=== PATIENT | female | born 1945 | race Caucasian/White ===

== ENCOUNTER → 2017-02-03 | Outpatient (CLI) | payer BC ==
--- NOTE | 2017-02-03 08:48 | MR ---
EXAMINATION TYPE: MR shoulder LT wo con DATE OF EXAM: 02/03/2017 7:32 AM COMPARISON: Outside left shoulder x-ray January 21, 2017. HISTORY: Left shoulder pain per order. Pain with motion with difficulty raising overhead for one year per patient. TECHNIQUE: Multiplanar, multisequence imaging of the left shoulder is performed without contrast. FINDINGS: Rotator Cuff: There is increased signal in distal supraspinatus tendon. There is focal articular surf jina partial tear measuring 4 mm transversely on paracoronal image 1 3 mm in anterior posterior dimens ion on parasagittal image 5. No full-thickness retracted tendon tear is identified. Infraspinatus ten don is intact. Subscapularis tendon is intact with increased signal distally noted. Rotator cuff musc le bulk is maintained. Acromioclavicular Joint: There is moderate spurring and joint space loss, inferior fat plane is lost, underlying impingement is suspected. Type II downsloping acromion is noted. Glenohumeral Joint: There is moderate to large glenohumeral joint effusion. There is joint space loss with mild to minimal spurring. Labrum: Intermediate signal and deformity consistent with labral tear is present. Biceps Tendon: There appears to be vertical cleavage tear through the extra-articular portion of the long head of biceps tendon. Intra-articular portion not well seen but increased signal is definitely present. Bone marrow signal: There is subchondral cystic change in the superolateral humeral head. Other: There is well-defined 1.6 cm ossific fragment perhaps product of old trauma or fractured osteo phyte adjacent to the bicipital groove seen best on paracoronal image 13. IMPRESSION: 1. Tendinosis and partial articular surface tear of supraspinatus tendon. 2. Fraying tear superior labrum. 3. Moderate to advanced osteoarthritic changes in the shoulder as detailed above. Underlying impingem ent suspected. 4. High-grade tear and tendinosis of long head of biceps tendon.
== END ==
LOC: RADMRIMAIN 06:34
PROVIDERS: ATTEND Orthopaedic Surgery
DX: M75.102 Unspecified rotator cuff tear or rupture of left shoulder, not specified as traumatic (principal); S43.402A Unspecified sprain of left shoulder joint, initial encounter; X58.XXXA Exposure to other specified factors, initial encounter; M19.012 Primary osteoarthritis, left shoulder; S46.112A Strain of muscle, fascia and tendon of long head of biceps, left arm, initial encounter

== ENCOUNTER → 2017-03-06 | Outpatient (CLI) | payer BC ==
[2017-03-06 13:48] LABS: Basophils # (A) 0.1 k/uL (0-0.2); Basophils % (A) 1 %; CH 30.6; CHCM 32.5; Eosinophils # (A) 0.1 k/uL (0-0.7); Eosinophils % (A) 1 %; HCT 48.5 % (34.0-46.0); HDW 2.41; HGB 15.6 gm/dL (11.4-16.0); Luc # (Auto) 0.22; Luc % (Auto) 2; Lymphocytes # (A) 3.4 k/uL (1.0-4.8); Lymphocytes % (A) 29 %; MCH 30.5 pg (25.0-35.0); MCHC 32.2 g/dL (31.0-37.0); MCV 94.8 fL (80.0-100.0); Monocytes # (A) 0.7 k/uL (0-1.0); Monocytes % (A) 6 %; Neutrophils # (A) 7.1 k/uL (1.3-7.7); Neutrophils % (A) 61 %; RBC 5.12 m/uL (3.80-5.40); RDW 13.5 % (11.5-15.5); WBC 11.6 k/uL (3.8-10.6); WBC (Perox) 11.64
[2017-03-06 14:04] LABS: Potassium 4.1 mmol/L (3.5-5.1)
== END | disposition home or self-care (01) ==
LOC: LABPAT 13:25
PROVIDERS: ATTEND Orthopaedic Surgery
DX: Z01.810 Encounter for preprocedural cardiovascular examination (principal); I10 Essential (primary) hypertension; M75.42 Impingement syndrome of left shoulder
CPT/HCPCS: 80051; 85025

== ENCOUNTER 2017-03-19 06:44 | Day surgery (SDC) | payer BC ==
[2017-03-17 11:38] VITALS: BMI 28.3
--- NOTE | 2017-03-18 15:29 | HP ---
DATE OF ADMISSION: 03/19/2017 Nikole Almaguer is a 72-year-old patient seen with progressive left shoulder pain. After having treatment options discussed, she elected to proceed with left shoulder arthroscopy. Consent was obtained. Her past medical history is hypertension, cardiovascular disease, asthma. PAST SURGICAL HISTORY: Cardiac catheterization, carpal tunnel surgery, section, herniorrhaphy, hysterectomy, knee arthroscopy, splenectomy, right shoulder arthroscopy. DAILY MEDICATIONS: 1. Lisinopril/hydrochlorothiazide. 2. Singulair. 3. Metformin. 4. Aleve. ALLERGIES: SULFA, TRIMOX, AUGMENTIN, LORTAB, CODEINE, CIPRO, IBUPROFEN, ROCEPHIN, CRESTOR. SOCIAL HISTORY: Patient denies tobacco use. Physical evaluation of the left shoulder: Flexion 100 degrees, abduction is 90 degrees, external rotation is 20 degrees with weakness. Tenderness along the anterolateral acromion and rotator cuff insertion. Impingement is positive at 90 degrees, distal neurovascular exam is intact. Radiographs of the left shoulder revealed a type 2 anterior acromion, evidence for acromioclavicular joint osteoarthritis and cystic changes of the tuberosity. An MRI of the left shoulder revealed impingement, osteoarthritis, as well as a partial rotator cuff tendon tear. IMPRESSION: Left shoulder impingement with partial rotator cuff tear. PLAN: Left shoulder arthroscopy with subacromial decompression, possible arthroscopic rotator cuff repair, and debridement.
[~2017-03-19 06:44] MED LIST: DEXAMETHASONE SOD PHOSPHATE 10 MG/ML 1 ML VIAL IV ONE; HYDROmorphone 1 MG/ML 1 ML SYRINGE IVP PRN; LACTATED RINGERS 1,000 ML IV SCH; LIDOCAINE 1% 20 ML VIAL (10MG/ML) FOR IV START INTRADERMA PRN; MIDAZOLAM 2 MG/2 ML VIAL IV PRN; ONDANSETRON 4 MG/2 ML VIAL IVP ONE; SCOPOLAMINE 1.5MG/72HR PATCH TRANSDERM ONE; ceFAZolin 1,000 MG in DEXTROSE/WATER 1 50ML.BAG IV ONE
[2017-03-19 07:38] LABS: Glucose,Whole Blood 120 mg/dL (75-99)
[2017-03-19] MEDS ORDERED: LIDOCAINE 2%-EPI 1:100,000 20 ML VIAL ONE (08:25)
[2017-03-19] MEDS ORDERED: PROPOFOL 10 MG/ML 20 ML VIAL IV ONE (08:25)
[2017-03-19] MEDS ORDERED: SUCCINYLCHOLINE CHLORIDE 100 MG/5 ML SYR IV ONE (08:25)
[2017-03-19] MEDS ORDERED: MIDAZOLAM 2 MG/2 ML VIAL ONE (08:25)
[2017-03-19] MEDS ORDERED: ROCURONIUM BROMIDE 10 MG/ML 10 ML VIAL IV ONE (08:25)
[2017-03-19] MEDS ORDERED: fentaNYL (PF) 50 MCG/ML 2 ML AMP ONE (08:25)
[2017-03-19] MEDS ORDERED: ePHEDrine 50 MG/ML 1 ML AMP ONE (08:25)
[2017-03-19] MEDS ORDERED: ROPIVACAINE 5 MG/ML 30 ML VIAL ONE (08:25)
[2017-03-19] MEDS ORDERED: LACTATED RINGERS 1,000 ML IV ONE (09:33)
[2017-03-19 10:05] VITALS: TEMP 97.2
--- NOTE | 2017-03-19 10:09 | P.OP ---
Date of Procedure: 03/19/17 Preoperative Diagnosis: Left shoulder impingement Postoperative Diagnosis: 1. Left shoulder rotator cuff tear 2. Left shoulder subacromial impingement 3. Left shoulder acromioclavicular joint osteoarthritis 4. Left shoulder partial long head biceps tendon tear 5. Left shoulder superficial anterior/superior labral tear 6. 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 Left shoulder arthroscopic rotator cuff repair 2. Left shoulder arthroscopic subacromial decompression 3. Left shoulder arthroscopic Debbi procedure 4. Left shoulder arthroscopic biceps tenotomy 5. Left shoulder arthroscopic debridement superficial anterior/superior labral tears 6. Left shoulder arthroscopic chondroplasty humeral head Implants: 1-valeris 5.5 peek anchor Anesthesia: JOSE, regional (Shoulder block) Surgeon: Paul Aranda Armature Bander #1: Richard Thompson Estimated Blood Loss (ml): 10 Pathology: none sent Condition: stable Disposition: PACU Indications for Procedure: 72-year-old patient seen with progressive left shoulder pain. After having treatment options discussed, she elected to proceed with left shoulder arthroscopy. Operative Findings: See description of procedure Description of Procedure: Patient underwent a shoulder block by department of anesthesia. The patient was then taken to the operative suite. The patient underwent a general anesthetic by the department of anesthesia. The patient was placed into a lateral position and secured. There was appropriate padding of the bony prominence. Left shoulder was then prepped and draped in normal sterile orthopedic fashion. We placed the extremity in 10 pounds of longitudinal traction. A posterior incision was now made for a posterior working portal site. The trocar and cannula were inserted into the glenohumeral joint. Arthroscopy was initiated. Spinal needle was now inserted anteriorly, to ascertain the anterior working portal site. An incision was now made in that area, a trocar was inserted followed by a probe. There was superficial tearing of the anterior and superior labrum. Partial tearing long head biceps tendon was present. There were grade 2-3 chondromalacia changes of the superior portion of the humeral head with some osteochondral tears present. There were grade 1 chondromalacia changes of the glenoid fossa with no osteochondral tears. The posterior and inferior labrum were intact. There were no loose bodies. I performed a arthroscopic biceps tenotomy. I debrided the labral tears down to stable tissue. I performed a chondroplasty of the humeral head down to stable tissue. The residual labrum was stable as was the residual osteochondral surface of the humeral head. At this point instruments removed from glenohumeral joint. Utilizing the posterior working portal site, the trocar and cannula were inserted into the subacromial space. Arthroscopy initiated. I made an incision 2 fingerbreadths lateral to the acromion. I introduced my trocar followed by my ArthroCare ablator. I now began ablating thick subacromial bursal tissue, which exposed the undersurface of the anterior acromion. This was diminished subacromial space. There was a very prominent anterior acromion. A motorized bur was introduced and a subacromial decompression was performed. I also excised some osteophytes off the inferior aspect of the distal clavicle. The AC joint was visualized and noted to be fairly arthritic. Our motorized bur was introduced in the anterior portal site and a Debbi procedure was performed without difficulty, decompressing the AC joint nicely. I turned my attention to the rotator cuff. There was a 1-1.5 cm tear along the distal supraspinatus. I debrided the area/tissue down to stable tissue. I abraded the footprint with a motorized bur. I passed 2 everted mattress sutures through good bites of rotator cuff tendon. I repaired the tendon back to the footprint with 1 anchor compressing the tendon very nicely. The residual suture limbs were clipped. The repair was probed and found to be stable. I injected 1 mL of Allogen at into the footprint/repair site. Instruments now removed from the portal sites. All portal sites were approximated with nylon suture. Sterile dressings were applied followed by a shoulder immobilizer. Syed ALBA assisted with the procedure. The patient was awakened, transferred to a bed, and taken to recovery in stable condition.
[2017-03-19 10:50] LABS: Glucose,Whole Blood 142 mg/dL (75-99)
[2017-03-19 11:05] VITALS: RESP 16
[2017-03-19 11:46] VITALS: BP 137/74; PULSE 82
== END 2017-03-19 12:16 | disposition home or self-care (01) ==
LOC: OR 06:44
PROVIDERS: ATTEND Orthopaedic Surgery
DX: M75.102 Unspecified rotator cuff tear or rupture of left shoulder, not specified as traumatic (principal); M75.42 Impingement syndrome of left shoulder; M19.012 Primary osteoarthritis, left shoulder; S46.112A Strain of muscle, fascia and tendon of long head of biceps, left arm, initial encounter; S43.432A Superior glenoid labrum lesion of left shoulder, initial encounter; M94.212 Chondromalacia, left shoulder; X58.XXXA Exposure to other specified factors, initial encounter; Z88.5 Allergy status to narcotic agent; Z88.2 Allergy status to sulfonamides; Z88.6 Allergy status to analgesic agent; Z88.1 Allergy status to other antibiotic agents; Z88.8 Allergy status to other drugs, medicaments and biological substances; Z79.899 Other long term (current) drug therapy; Z79.84 Long term (current) use of oral hypoglycemic drugs; Z79.1 Long term (current) use of non-steroidal anti-inflammatories (NSAID)
CPT/HCPCS: 64415; 29827; 29826; 29824; C1713; C1765; J2250; J1100; J2405; J3010; J2795; J0330; J2704

== ENCOUNTER → 2017-10-22 | Outpatient (CLI) | payer BC ==
--- NOTE | 2017-10-27 08:31 | MM ---
Reason for exam: screening (asymptomatic). Last mammogram was performed 1 year and 3 months ago. History: Patient is postmenopausal. Took estrogen for 20 years beginning at age 34. Physical Findings: A clinical breast exam by your physician is recommended on an annual basis and results should be correlated with mammographic findings. MG Screening Mammo w CAD Bilateral CC and MLO view(s) were taken. Prior study comparison: July 15, 2016, bilateral MG screening mammo w CAD. January 14, 2011, bilateral digital screening mammo w/CAD. There are scattered fibroglandular densities. Nodular asymmetries anterior right breast just above the retroaerolar plane were present previously but appear more defined on the MLO view. As the appearence is unchanged on the CC view, altered orientation of normal tissue is suggested. 6 month follow up is recommended. ASSESSMENT: Probably benign, BI-RAD 3 RECOMMENDATION: Follow-up diagnostic mammogram of the right breast in 6 months.
== END | disposition home or self-care (01) ==
LOC: RADMAMWWP 14:40
PROVIDERS: ATTEND Family Medicine
DX: Z12.31 Encounter for screening mammogram for malignant neoplasm of breast (principal)

== ENCOUNTER → 2020-01-18 | Outpatient (CLI) | payer BC ==
--- NOTE | 2020-01-18 11:44 | FL ---
EXAMINATION TYPE: FL barium swallow w video DATE OF EXAM: 01/18/2020 COMPARISON: NONE HISTORY: Dysphagia. The patient was evaluated in the lateral projection during real-time fluoroscopy, during ingestion of barium mixed with solids and liquids. No aspiration or laryngeal penetration. See report from [facility]. Some vallecular residuals noted. 1 minute 51 seconds fluoroscopy time, no images obtained
== END | disposition home or self-care (01) ==
LOC: RADFLMAIN 10:38
PROVIDERS: ATTEND Family Medicine
DX: R13.10 Dysphagia, unspecified (principal)
CPT/HCPCS: 74230

== ENCOUNTER → 2021-01-18 | Outpatient (CLI) | payer BC ==
--- NOTE | 2021-01-18 12:14 | NM ---
EXAMINATION TYPE: NM stress cardiolite complete DATE OF EXAM: 01/18/2021 COMPARISON: NONE HISTORY: Chest pain TECHNIQUE: After the intravenous administration of 9.43 mCi Tc 99m Sestamibi - Rest images obtained 50 minutes post injection. The patient exercised using a LUIS ALBERTO protocol and 1 minute prior to peak exercise was injected with 25.3 mCi Tc 99m Sestamibi - Stress images obtained 25 minutes post injecti on. FINDINGS: Targeted heart rate was achieved during performance of the study. Review of stress and rest SPECT luis ges demonstrates no distinct perfusion abnormality. Gated analysis shows normal wall motion with an estimated left ventricular ejection fraction of 75 %. IMPRESSION: No scintigraphic evidence for reversible ischemia
--- NOTE | 2021-01-18 14:02 | EST ---
EXERCISE STRESS AGE: 75 SEX: Female HT: 4'10" WT: 132 lbs. PROTOCOL: Cardiolite Stress STAGE: 2 DURATION OF EXERCISE: 3 minutes 44 seconds HEART RATE REST: 56 BLOOD PRESSURE REST: 162/90 MAXIMUM HEART RATE ACHIEVED: 139 MAXIMUM BLOOD PRESSURE: 236/110 85% MPHR: 122 100% MPHR: 144 METS: 5.4 INDICATIONS: Chest pain CLINICAL INFORMATION: Nikole Almaguer is 75-year-old female. She has a history of chest discomfort. She has diabetes, hypertension. Baseline heart rate 56 beats per minute. Baseline blood pressure 162/90 mmHg. Baseline 12-lead EKG showed sinus rhythm with T-wave inversions in V3 to V6. Patient exercised on a Khris protocol for barely 3 minutes 44 seconds achieving a peak heart rate of 139 beats per minute, hypertensive response. Blood pressure was 236/110 mmHg immediately in recovery. There were no new ECG abnormalities noted. No arrhythmias noted. IMPRESSION: 1. Poor exercise capacity. 2. Hypertensive response. 3. Abnormal ECG at baseline but without development of any new abnormalities. 4. Poor exercise capacity done in Khris protocol. MMODL / IJN: [id number] /
== END | disposition home or self-care (01) ==
LOC: RADNMMAIN 07:47
PROVIDERS: ATTEND Family Medicine
DX: R07.89 Other chest pain (principal)
CPT/HCPCS: 93017; 78452; A9500

== ENCOUNTER → 2021-01-19 | Outpatient (CLI) | payer BC ==
--- NOTE | 2021-01-20 12:55 | MR ---
EXAMINATION TYPE: MR brain wo/w con DATE OF EXAM: 01/19/2021 COMPARISON: NONE HISTORY: Dysphagia, HX benign neoplasm brain, facial paresthesia. TECHNIQUE: Multiplanar, multisequence images of the brain and brainstem is performed without and with IV contras t, utilizing 6 mL intravenous Gadavist . FINDINGS: Diffusion weighted images demonstrate no evidence of a recent infarct or other diffusion ab normality. Surgical change from high right parietal craniotomy with adjacent resection cavity and/or encephalomalacia is present. Ventricles and sulci within normal limits in size for patient's age. Mauricio e scattered foci of T2 hyperintensity seen throughout the white matter bilaterally. Roughly 10-20 sma ll scattered lesions are seen. Midline structures demonstrate normal morphology. The craniocervical junction appears within normal limits. Post contrast images demonstrate no abnormal enhancement. The dural venous sinuses appear p atent. The visualized sinuses are clear. Slight elongation of the globes. IMPRESSION: High right parietal surgical change with focal resection cavity and/or encephalomalacia. Mild chronic small vessel ischemic change. No suspicious enhancement.
== END | disposition home or self-care (01) ==
LOC: RADMRIMAIN 15:15
PROVIDERS: ATTEND Family Medicine
DX: I67.82 Cerebral ischemia (principal); R13.10 Dysphagia, unspecified; Z86.011 Personal history of benign neoplasm of the brain
CPT/HCPCS: 70553; A9585

== ENCOUNTER → 2021-09-25 | Outpatient (CLI) | payer BC ==
--- NOTE | 2021-09-25 12:14 | XR ---
EXAMINATION TYPE: XR chest 2V DATE OF EXAM: 09/25/2021 COMPARISON: NONE HISTORY: Dyspnea TECHNIQUE: Frontal and lateral views of the chest are obtained. FINDINGS: There is no focal air space opacity, pleural effusion, or pneumothorax seen. The cardiac silhouette size is within normal limits. Aorta is dense. The osseous structures are intact, there is a spinal curvature, question postoperative changes to the distal clavicles, arthropathy change at th e humeral heads, bone mineralization is reduced. IMPRESSION: No acute cardiopulmonary process.
== END | disposition home or self-care (01) ==
LOC: RADXRMAIN 09:36
PROVIDERS: ATTEND Physician Assistant
DX: R06.00 Dyspnea, unspecified (principal)
CPT/HCPCS: 71046

== ENCOUNTER 2021-12-24 08:46 | Emergency (ER) | payer BC ==
[2021-12-24 08:57] VITALS: BP 151/91; PULSE 88; RESP 18; TEMP 97
[2021-12-24] MEDS ORDERED: SODIUM CHLORIDE 0.9% 1,000 ML IV STA (09:14)
--- NOTE | 2021-12-24 09:28 | ED ---
General Adult HPI - General Chief complaint: Urogenital Stated complaint: trouble urinating Time Seen by Provider: 12/24/21 08:59 Source: patient Mode of arrival: ambulatory Limitations: no limitations - History of Present Illness Initial comments: 76-year-old female with a past medical history of diabetes mellitus, GERD, hypertension presents to the emergency room for a chief complaint of dysuria. Patient reports she has had dysuria for the past 2 days. Patient states yesterday she went to urgent care and had amoxicillin started for a UTI. Howev er they told her because she was having smaller amounts of urination that if she wasn't urinating a full bladder then to come to the emergency room by today. Patient denies any fevers. Denies fullness of her bladder.Patient has no other complaints at this time including shortness of breath, chest pain, abdominal pain, nausea or vomiting, headache, or visual changes. - Related Data Home Medications Medication Instructions Recorded Confirmed Acetaminophen [Tylenol] 2 tab PO BID 08/20/16 03/19/17 Allergy Injection 1 applic SQ DIRECTED 08/20/16 03/19/17 Aspirin 81 mg PO DAILY 08/20/16 03/19/17 Ergocalciferol [Vitamin D2] 50,000 unit PO DE ANDA 08/20/16 03/19/17 Naproxen Sodium [Aleve] 440 mg PO Q6H PRN 08/20/16 03/19/17 lisinopriL 40 mg PO DAILY 08/20/16 03/19/17 Equate 1 tab PO DAILY PRN 03/17/17 03/19/17 Previous Rx's Medication Instructions Recorded Nitrofurantoin Monohyd/M-Cryst 100 mg PO Q12HR #14 cap 12/24/21 [Macrobid] Allergies Allergy/AdvReac Type Severity Reaction Status Date / Time acetaminophen [From Lortab] Allergy Abdominal Verified 12/24/21 08:52 Pain amoxicillin trihydrate Allergy Abdominal Verified 12/24/21 08:52 [From Trimox] Pain, chills and nausea ceftriaxone sodium Allergy Abdominal Verified 12/24/21 08:52 [From Rocephin] Pain ciprofloxacin Allergy Rash/Hives Verified 12/24/21 08:52 codeine Allergy Rash/Hives Verified 12/24/21 08:52 doxycycline Allergy Abdominal Verified 12/24/21 08:52 Pain hydrocodone bitartrate Allergy Abdominal Verified 12/24/21 08:52 [From Lortab] Pain ibuprofen Allergy Nausea, Verified 12/24/21 08:52 CHILLS pentazocine lactate Allergy Abdominal Verified 12/24/21 08:52 [From Talwin] Pain potassium clavulanate Allergy Abdominal Verified 12/24/21 08:52 [From Augmentin] Pain rosuvastatin Allergy Nausea, Verified 12/24/21 08:52 CHILLS Sulfa (Sulfonamide Allergy Abdominal Verified 12/24/21 08:52 Antibiotics) Pain Review of Systems ROS Statement: Those systems with pertinent positive or pertinent negative responses have been documented in the HPI. ROS Other: All systems not noted in ROS Statement are negative. Past Medical History Past Medical History: Chest Pain / Angina, Diabetes Mellitus, GERD/Reflux, Hypertension History of Any Multi-Drug Resistant Organisms: None Reported Past Surgical History: Section, Heart Catheterization, Hernia Repair, Hysterectomy, Orthopedic Surgery Additional Past Surgical History / Comment(s): brain surgery, B cataract, r elbow, L knee, B shoulder Past Psychological History: No Psychological Hx Reported Smoking Status: Never smoker Past Alcohol Use History: None Reported Past Drug Use History: None Reported General Exam Limitations: no limitations General appearance: alert, in no apparent distress Head exam: Present: atraumatic Eye exam: Present: normal appearance, PERRL, EOMI. Absent: scleral icterus, conjunctival injection ENT exam: Present: normal exam, mucous membranes moist Neck exam: Present: normal inspection, full ROM. Absent: tenderness Respiratory exam: Present: normal lung sounds bilaterally. Absent: respiratory distress, wheezes Cardiovascular Exam: Present: regular rate, normal rhythm, normal heart sounds GI/Abdominal exam: Present: soft, normal bowel sounds. Absent: distended, tenderness Neurological exam: Present: alert Course Vital Signs 12/24/21 08:52 Temperature 97 F L Pulse Rate 88 Respiratory 18 Rate Blood Pressure 151/91 O2 Sat by Pulse 100 Oximetry Medical Decision Making - Medical Decision Making Vitals are stable. HPI and physical exam as documented. Bladder scan shows 78 mL. CBC shows a normal white cell count. CMP unremarkable. Minimal tr ansaminitis. urinalysis does show evidence of infection. Patient is currently taking amoxicillin. We will discontinue this and start Macrobid. Patient was offered a dose of Rocephin given her ALLERGY is abdominal pain but she declined. At this time patient can be discharged home to follow up with primary care. Will return here for any worsening symptoms. - Lab Data Result diagrams: 12/24/21 09:20 12/24/21 09:20 Lab Results 12/24/21 12/24/21 12/24/21 Range/Units 09:20 09:20 09:20 WBC 9.7 (3.8-10.6) k/uL RBC 4.71 (3.80-5.40) m/uL Hgb 15.0 (11.4-16.0) gm/dL Hct 46.0 (34.0-46.0) % MCV 97.7 (80.0-100.0) fL MCH 31.9 (25.0-35.0) pg MCHC 32.7 (31.0-37.0) g/dL RDW 15.3 (11.5-15.5) % Plt Count 337 (150-450) k/uL MPV 7.2 Neutrophils % 64 % Lymphocytes % 24 % Monocytes % 8 % Eosinophils % 1 % Basophils % 0 % Neutrophils # 6.3 (1.3-7.7) k/uL Lymphocytes # 2.4 (1.0-4.8) k/uL Monocytes # 0.7 (0-1.0) k/uL Eosinophils # 0.1 (0-0.7) k/uL Basophils # 0.0 (0-0.2) k/uL Sodium 137 (137-145) mmol/L Potassium 4.9 (3.5-5.1) mmol/L Chloride 104 (98-107) mmol/L Carbon Dioxide 25 (22-30) mmol/L Anion Gap 8 mmol/L BUN 9 (7-17) mg/dL Creatinine 0.64 (0.52-1.04) mg/dL Est GFR (CKD-EPI)AfAm >90 (>60 ml/min/1.73 sqM) Est GFR (CKD-EPI)NonAf 86 (>60 ml/min/1.73 sqM) Glucose 126 H (74-99) mg/dL Calcium 10.8 H (8.4-10.2) mg/dL Total Bilirubin 1.0 (0.2-1.3) mg/dL AST 70 H (14-36) U/L ALT 79 H (4-34) U/L Alkaline Phosphatase 69 (38-126) U/L Total Protein 8.0 (6.3-8.2) g/dL Albumin 4.5 (3.5-5.0) g/dL Urine Color Yellow Urine Appearance Cloudy H (Clear) Urine pH 5.5 (5.0-8.0) Ur Specific [place] 1.012 (1.001-1.035) Urine Protein Negative (Negative) Urine Glucose (UA) Trace H (Negative) Urine Ketones Negative (Negative) Urine Blood Negative (Negative) Urine Nitrite Negative (Negative) Urine Bilirubin Negative (Negative) Urine Urobilinogen <2.0 (<2.0) mg/dL Ur Leukocyte Esterase Large H (Negative) Urine RBC 5 (0-5) /hpf Urine WBC 55 H (0-5) /hpf Ur Squamous Epith Cells 5 H (0-4) /hpf Urine Bacteria Rare H (None) /hpf Urine Mucus Occasional H (None) /hpf Disposition Clinical Impression: UTI (urinary tract infection) Disposition: HOME SELF-CARE Condition: Good Instructions (If sedation given, give patient instructions): Urinary Tract Infection in Women (ED) Additional Instructions: Please take Macrobid instead of amoxicillin. Discontinue the amoxicillin. Follow-up with your doctor. Return to the emergency room for any worsening symptoms. Prescriptions: Nitrofurantoin Monohyd/M-Cryst [Macrobid] 100 mg PO Q12HR #14 cap Is patient prescribed a controlled substance at d/c from ED?: No Referrals: Jocelyn Kemp DO [Primary Care Provider] - 1-2 days Time of Disposition: 09:58
[2021-12-24 09:31] LABS: Basophils % (A) 0 %; Eosinophils # (A) 0.1 k/uL (0-0.7); Eosinophils % (A) 1 %; Lymphocytes # (A) 2.4 k/uL (1.0-4.8); Lymphocytes % (A) 24 %; MCH 31.9 pg (25.0-35.0); MCHC 32.7 g/dL (31.0-37.0); MCV 97.7 fL (80.0-100.0); Mean Platelet Volume 7.2; Monocytes # (A) 0.7 k/uL (0-1.0); Monocytes % (A) 8 %; Neutrophils # (A) 6.3 k/uL (1.3-7.7); Neutrophils % (A) 64 %; Platelet Count 337 k/uL (150-450); RBC 4.71 m/uL (3.80-5.40); RDW 15.3 % (11.5-15.5); WBC 9.7 k/uL (3.8-10.6)
[2021-12-24 09:35] LABS: Appearance,Urine Cloudy (Clear); Bacteria,Urine Rare /hpf; Bilirubin,Urine Negative (Negative); Blood,Urine Negative (Negative); Color,Urine Yellow; Glucose,Urine (UA) Trace (Negative); Ketones,Urine Negative (Negative); Leukocyte Esterase,Urine Large (Negative); Mucus,Urine Occasional /hpf; Nitrite,Urine Negative (Negative); PH, Urine 5.5 (5.0-8.0); Protein,Urine Negative (Negative); RBC,Urine 5 /hpf (0-5); Specific Gravity,Urine 1.012 (1.001-1.035); Squamous Epithelial Cell,Urine 5 /hpf (0-4); Urobilinogen,Urine <2.0 mg/dL (<2.0); WBC,Urine 55 /hpf (0-5)
[2021-12-24 09:41] LABS: ALT 79 U/L (4-34); AST 70 U/L (14-36); African American GFR (CKD) >90 (>60 ml/min/1.73 sqM); Albumin 4.5 g/dL (3.5-5.0); Alkaline Phosphatase 69 U/L (38-126); Anion Gap 8 mmol/L; Blood Urea Nitrogen 9 mg/dL (7-17); Calcium 10.8 mg/dL (8.4-10.2); Carbon Dioxide 25 mmol/L (22-30); Chloride 104 mmol/L (98-107); Glucose 126 mg/dL (74-99); Non-African American GFR(CKD) 86 (>60 ml/min/1.73 sqM); Potassium 4.9 mmol/L (3.5-5.1); Sodium 137 mmol/L (137-145)
[2021-12-24] MEDS ORDERED: NITROFURANTOIN MONOHYD/M-CRYST 100 MG CAP PO STA (10:11)
== END 2021-12-24 10:29 | disposition home or self-care (01) ==
LOC: EC 08:46
DX: E11.9 Type 2 diabetes mellitus without complications (principal); N39.0 Urinary tract infection, site not specified; I10 Essential (primary) hypertension; K21.9 Gastro-esophageal reflux disease without esophagitis; I20.9 Angina pectoris, unspecified; Z79.811 Long term (current) use of aromatase inhibitors; Z88.6 Allergy status to analgesic agent; Z88.0 Allergy status to penicillin; Z88.1 Allergy status to other antibiotic agents; Z88.5 Allergy status to narcotic agent; Z88.8 Allergy status to other drugs, medicaments and biological substances; Z88.2 Allergy status to sulfonamides
CPT/HCPCS: 36415; 51798; 80053; 81001; 85025; 87086

== ENCOUNTER → 2021-12-28 | Outpatient (CLI) | payer BC ==
[2021-12-28 13:35] LABS: African American GFR (CKD) >90 (>60 ml/min/1.73 sqM); Blood Urea Nitrogen 12 mg/dL (7-17); Non-African American GFR(CKD) 82 (>60 ml/min/1.73 sqM)
--- NOTE | 2021-12-28 14:55 | CT ---
EXAMINATION TYPE: CT abdomen pelvis w con DATE OF EXAM: 12/28/2021 COMPARISON: None HISTORY: Abdominal pain CT DLP: 522.40 mGycm Automated exposure control for dose reduction was used. TECHNIQUE: Helical acquisition of images from the lung bases through the pelvis have been completed. CONTRAST: Performed with Oral Contrast and with IV Contrast, patient injected with 100 mL of Isovue 300. FINDINGS: There is a contrast collection at the level the distal esophagus, postop changes are noted likely status post Fior fundoplication, contrast collection may represent a recurrent hiatal hernia measuring approximately 4 cm in AP dimension, is extrinsic, causes mass effect on the distal esophag us LUNG BASES: No significant abnormality is appreciated. AORTA: No significant abnormality is appreciated. LIVER/GB: Liver shows low attenuation possibly due to hepatic steatosis, gallbladder is unremarkable. PANCREAS: No significant abnormality is seen. SPLEEN: Irregular soft tissue in the left upper quadrant is thought to represent splenic tissue, vinny elate for remote history of trauma. ADRENALS: Mild prominence of the left adrenal gland noted without focal mass may be due to adrenal hy perplasia. Possible associated punctate calcification. KIDNEYS: No significant abnormality is seen. REPRODUCTIVE ORGANS: No significant abnormality is seen BOWEL: There is some diverticular changes associated with the colon. No evident appendicitis FREE AIR: No Free Air visible. ASCITES: None visible. PELVIC ADENOPATHY: None visualized. RETROPERITONEAL ADENOPATHY: No Retroperitoneal Adenopathy visible. URINARY BLADDER: No significant abnormality is seen. OSSEOUS STRUCTURES: Degenerative disc changes and facet arthropathy noted to the lower lumbar spine, there is a spinal curvature.. IMPRESSION: POSSIBLE RECURRENT PARAESOPHAGEAL HIATAL HERNIA. CORRELATE FOR REMOTE HISTORY OF TRAUMA, THERE IS IRR EGULAR APPEARANCE TO THE SPLENIC TISSUE, POSSIBLE ADRENAL HYPERPLASIA ON THE LEFT AT ADDITIONAL FINDI NGS ABOVE.
== END | disposition home or self-care (01) ==
LOC: RADCTMAIN 12:46
PROVIDERS: ATTEND Family Medicine
DX: R10.32 Left lower quadrant pain (principal)
CPT/HCPCS: 82565; 84520; 74177; Q9967

== ENCOUNTER 2022-06-28 11:15 | Emergency (ER) | payer BC ==
[2022-06-28 11:46] VITALS: TEMP 98
[2022-06-28] MEDS ORDERED: ONDANSETRON 4 MG/2 ML VIAL IVP STA (11:55)
[2022-06-28] MEDS ORDERED: fentaNYL (PF) 50 MCG/ML 2 ML AMP IVP STA (11:55)
[2022-06-28] MEDS ORDERED: SODIUM CHLORIDE 0.9% 500 ML 500 ML IV STA (11:55)
--- NOTE | 2022-06-28 11:58 | ED ---
General Adult HPI - General Chief complaint: GI Bleed Stated complaint: med reaction, rectal bleeding Time Seen by Provider: 06/28/22 11:50 Source: patient, family, RN notes reviewed, old records reviewed Mode of arrival: ambulatory Limitations: no limitations - History of Present Illness Initial comments: 77-year-old well-appearing female presents to the emergency room with complaints of rectal bleeding today. Patient states that she ate salami had an ALLERGIC reaction couple of days ago. She had some nausea and diarrhea, denies vomiting. She states that she has multiple allergic reactions to medications and foods and usually symptoms resolve on their own. This time her lower abdominal pain remained. She states that she is passing gas and there is blood that shoots out. She denies any dizziness, no chest pain, shortness of breath or fevers. -: days(s) (2) Severity scale (1-10): 8 Consistency: intermittent Associated Symptoms: nausea/vomiting, other (diarrhea) - Related Data Home Medications Medication Instructions Recorded Confirmed Acetaminophen [Tylenol] 2 tab PO BID 08/20/16 03/19/17 Allergy Injection 1 applic SQ DIRECTED 08/20/16 03/19/17 Aspirin 81 mg PO DAILY 08/20/16 03/19/17 Ergocalciferol [Vitamin D2] 50,000 unit PO DE ANDA 08/20/16 03/19/17 Naproxen Sodium [Aleve] 440 mg PO Q6H PRN 08/20/16 03/19/17 lisinopriL 40 mg PO DAILY 08/20/16 03/19/17 Equate 1 tab PO DAILY PRN 03/17/17 03/19/17 Previous Rx's Medication Instructions Recorded Nitrofurantoin Monohyd/M-Cryst 100 mg PO Q12HR #14 cap 12/24/21 [Macrobid] Levofloxacin [Levaquin] 750 mg PO DAILY 7 Days #7 tab 06/28/22 metroNIDAZOLE [Flagyl] 500 mg PO TID 7 Days #21 tab 06/28/22 Allergies Allergy/AdvReac Type Severity Reaction Status Date / Time acetaminophen [From Lortab] Allergy Abdominal Verified 12/24/21 08:52 Pain amoxicillin trihydrate Allergy Abdominal Verified 12/24/21 08:52 [From Trimox] Pain, chills and nausea ceftriaxone sodium Allergy Abdominal Verified 12/24/21 08:52 [From Rocephin] Pain ciprofloxacin Allergy Rash/Hives Verified 12/24/21 08:52 codeine Allergy Rash/Hives Verified 12/24/21 08:52 doxycycline Allergy Abdominal Verified 12/24/21 08:52 Pain hydrocodone bitartrate Allergy Abdominal Verified 12/24/21 08:52 [From Lortab] Pain ibuprofen Allergy Nausea, Verified 12/24/21 08:52 CHILLS pentazocine lactate Allergy Abdominal Verified 12/24/21 08:52 [From Talwin] Pain potassium clavulanate Allergy Abdominal Verified 12/24/21 08:52 [From Augmentin] Pain rosuvastatin Allergy Nausea, Verified 12/24/21 08:52 CHILLS Sulfa (Sulfonamide Allergy Abdominal Verified 12/24/21 08:52 Antibiotics) Pain Review of Systems ROS Statement: Those systems with pertinent positive or pertinent negative responses have been documented in the HPI. ROS Other: All systems not noted in ROS Statement are negative. Past Medical History Past Medical History: Chest Pain / Angina, Diabetes Mellitus, GERD/Reflux, Hypertension History of Any Multi-Drug Resistant Organisms: None Reported Past Surgical History: Section, Heart Catheterization, Hernia Repair, Hysterectomy, Orthopedic Surgery Additional Past Surgical History / Comment(s): brain surgery, B cataract, r elbow, L knee, B shoulder Past Psychological History: No Psychological Hx Reported Smoking Status: Never smoker Past Alcohol Use History: None Reported Past Drug Use History: None Reported General Exam Limitations: no limitations General appearance: alert, in no apparent distress Head exam: Present: atraumatic, normocephalic, normal inspection ENT exam: Present: normal oropharynx, mucous membranes moist Neck exam: Present: normal inspection, full ROM. Absent: tenderness, meningismus Respiratory exam: Present: normal lung sounds bilaterally. Absent: respiratory distress, accessory muscle use Cardiovascular Exam: Present: regular rate GI/Abdominal exam: Present: soft, tenderness (Left lower and right lower quadrant). Absent: distended, guarding, rebound, rigid, mass, pulsatile mass Extremities exam: Present: full ROM, normal capillary refill. Absent: tenderness Back exam: Present: normal inspection, full ROM. Absent: tenderness, CVA tenderness (R), CVA tenderness (L), rash noted Neurological exam: Present: alert, oriented X3 Psychiatric exam: Present: normal affect, normal mood Skin exam: Present: warm, dry, normal color. Absent: cyanosis, diaphoretic, petechiae, pallor Course Vital Signs 06/28/22 06/28/22 11:43 14:00 Temperature 98.0 F Pulse Rate 85 72 Respiratory 18 16 Rate Blood Pressure 116/74 102/60 O2 Sat by Pulse 96 96 Oximetry Medical Decision Making - Medical Decision Making CT shows moderate to severe nonspecific colitis from the splenic flexure of the colon to the proximal sigmoid colon. No free air. Labs show leukocytosis of 17,000 with a left shift. Magnesium 1.5 she was given a gram of magnesium IV. On reexam patient's abdomen remains minimally tender lower quadrants. She has no nausea and vomiting. Case discussed with Dr. Mcgovern, patient was started on antibiotics for colitis. Due to her multiple ALLERGIES antibiotics were chosen based on least adverse side effects. Strict return parameters were discussed including persistent nausea vomiting, fevers or increased pain. She was directed to follow-up with her primary care doctor next week. Patient is agreeable to this plan of care. - Lab Data Result diagrams: 06/28/22 12:04 06/28/22 12:04 Lab Results 06/28/22 06/28/22 06/28/22 Range/Units 12:04 12:04 12:04 WBC 17.2 H (3.8-10.6) k/uL RBC 4.97 (3.80-5.40) m/uL Hgb 15.0 (11.4-16.0) gm/dL Hct 47.1 H (34.0-46.0) % MCV 94.9 (80.0-100.0) fL MCH 30.1 (25.0-35.0) pg MCHC 31.7 (31.0-37.0) g/dL RDW 13.1 (11.5-15.5) % Plt Count 271 (150-450) k/uL MPV 7.8 Neutrophils % 79 % Lymphocytes % 13 % Monocytes % 5 % Eosinophils % 2 % Basophils % 0 % Neutrophils # 13.6 H (1.3-7.7) k/uL Lymphocytes # 2.3 (1.0-4.8) k/uL Monocytes # 0.9 (0-1.0) k/uL Eosinophils # 0.3 (0-0.7) k/uL Basophils # 0.1 (0-0.2) k/uL PT 10.0 (9.0-12.0) sec INR 0.9 (<1.2) APTT 24.7 (22.0-30.0) sec Sodium 134 L (137-145) mmol/L Potassium 4.1 (3.5-5.1) mmol/L Chloride 102 (98-107) mmol/L Carbon Dioxide 24 (22-30) mmol/L Anion Gap 8 mmol/L BUN 16 (7-17) mg/dL Creatinine 0.74 (0.52-1.04) mg/dL Est GFR (CKD-EPI)AfAm >90 (>60 ml/min/1.73 sqM) Est GFR (CKD-EPI)NonAf 78 (>60 ml/min/1.73 sqM) Glucose 125 H (74-99) mg/dL Plasma Lactic Acid Ahmet (0.7-2.0) mmol/L Calcium 10.2 (8.4-10.2) mg/dL Magnesium 1.5 L (1.6-2.3) mg/dL Total Bilirubin 1.0 (0.2-1.3) mg/dL AST 24 (14-36) U/L ALT 17 (4-34) U/L Alkaline Phosphatase 87 (38-126) U/L Total Protein 8.0 (6.3-8.2) g/dL Albumin 4.7 (3.5-5.0) g/dL 06/28/22 Range/Units 12:04 WBC (3.8-10.6) k/uL RBC (3.80-5.40) m/uL Hgb (11.4-16.0) gm/dL Hct (34.0-46.0) % MCV (80.0-100.0) fL MCH (25.0-35.0) pg MCHC (31.0-37.0) g/dL RDW (11.5-15.5) % Plt Count (150-450) k/uL MPV Neutrophils % % Lymphocytes % % Monocytes % % Eosinophils % % Basophils % % Neutrophils # (1.3-7.7) k/uL Lymphocytes # (1.0-4.8) k/uL Monocytes # (0-1.0) k/uL Eosinophils # (0-0.7) k/uL Basophils # (0-0.2) k/uL PT (9.0-12.0) sec INR (<1.2) APTT (22.0-30.0) sec Sodium (137-145) mmol/L Potassium (3.5-5.1) mmol/L Chloride (98-107) mmol/L Carbon Dioxide (22-30) mmol/L Anion Gap mmol/L BUN (7-17) mg/dL Creatinine (0.52-1.04) mg/dL Est GFR (CKD-EPI)AfAm (>60 ml/min/1.73 sqM) Est GFR (CKD-EPI)NonAf (>60 ml/min/1.73 sqM) Glucose (74-99) mg/dL Plasma Lactic Acid Ahmet 1.3 (0.7-2.0) mmol/L Calcium (8.4-10.2) mg/dL Magnesium (1.6-2.3) mg/dL Total Bilirubin (0.2-1.3) mg/dL AST (14-36) U/L ALT (4-34) U/L Alkaline Phosphatase (38-126) U/L Total Protein (6.3-8.2) g/dL Albumin (3.5-5.0) g/dL Disposition Clinical Impression: Abdominal pain, Colitis Disposition: HOME SELF-CARE Condition: Good Instructions (If sedation given, give patient instructions): Abdominal Pain (ED), Colitis (ED) Additional Instructions: Take antibiotics as prescribed. Follow up with your primary care doctor on Friday. Return to the emergency room with any new or concerning symptoms including increased pain, persistent nausea and vomiting or fevers. Prescriptions: metroNIDAZOLE [Flagyl] 500 mg PO TID 7 Days #21 tab Levofloxacin [Levaquin] 750 mg PO DAILY 7 Days #7 tab Is patient prescribed a controlled substance at d/c from ED?: No Referrals: Jocelyn Kemp DO [Primary Care Provider] - 1-2 days Time of Disposition: 14:14
[2022-06-28 12:19] LABS: Basophils # (A) 0.1 k/uL (0-0.2); Basophils % (A) 0 %; Eosinophils # (A) 0.3 k/uL (0-0.7); Eosinophils % (A) 2 %; HCT 47.1 % (34.0-46.0); Lymphocytes # (A) 2.3 k/uL (1.0-4.8); Lymphocytes % (A) 13 %; MCH 30.1 pg (25.0-35.0); MCHC 31.7 g/dL (31.0-37.0); MCV 94.9 fL (80.0-100.0); Mean Platelet Volume 7.8; Monocytes # (A) 0.9 k/uL (0-1.0); Monocytes % (A) 5 %; Neutrophils # (A) 13.6 k/uL (1.3-7.7); Neutrophils % (A) 79 %; Platelet Count 271 k/uL (150-450); RBC 4.97 m/uL (3.80-5.40); RDW 13.1 % (11.5-15.5); WBC 17.2 k/uL (3.8-10.6)
[2022-06-28 12:25] LABS: INR 0.9 (<1.2); Partial Thromboplastin Time 24.7 sec (22.0-30.0)
[2022-06-28 12:26] LABS: ALT 17 U/L (4-34); AST 24 U/L (14-36); African American GFR (CKD) >90 (>60 ml/min/1.73 sqM); Albumin 4.7 g/dL (3.5-5.0); Alkaline Phosphatase 87 U/L (38-126); Anion Gap 8 mmol/L; Blood Urea Nitrogen 16 mg/dL (7-17); Calcium 10.2 mg/dL (8.4-10.2); Carbon Dioxide 24 mmol/L (22-30); Chloride 102 mmol/L (98-107); Glucose 125 mg/dL (74-99); Magnesium 1.5 mg/dL (1.6-2.3); Non-African American GFR(CKD) 78 (>60 ml/min/1.73 sqM); Potassium 4.1 mmol/L (3.5-5.1); Sodium 134 mmol/L (137-145)
[2022-06-28] MEDS ORDERED: MAGNESIUM SULFATE-D5W PMX 1 GM in DEXTROSE/WATER 1 100ML.BAG IVPB ONE (13:21)
--- NOTE | 2022-06-28 13:44 | CT ---
EXAMINATION TYPE: CT abdomen pelvis w con DATE OF EXAM: 06/28/2022 COMPARISON: 12/28/2021 HISTORY: 77-year-old female abdominal pain TECHNIQUE: Contiguous axial scanning of the abdomen and pelvis following administration of 100 ml Iso rikki 300 IV contrast. Delayed images through the kidneys and coronal/sagittal reconstructions perform ed. CT DLP: 728.7 mGycm Automated exposure control for dose reduction was used. FINDINGS: Heart upper limits of normal in size without pericardial effusion. Strandy atelectasis or s carring in the lower lungs. No pleural effusion. Postsurgical change likely related to Fabian fundoplication. The previous hiatal hernia is no longer seen. There is a 1.6 cm nodule in the gastrohepatic ligament region anterior to the wrap, unchanged in size for 6 months. Continued surveillance recommended as etiology is unclear. Nodular thickening of the left adrenal gland slightly increased at 1.7 x 1.0 cm versus 1.6 x 0.8 cm, previously. Attention on follow-up. NO focal liver lesion. Stable mild prominence to the bile duct at 7 mm, unchanged. Portal venous syst em is patent. Gallbladder, right adrenal gland, irregular, possibly posttraumatic splenic tissue left upper quadran t, and spleen show no gross abnormal body. Moderate atherosclerotic calcifications infrarenal abdominal aorta. No dilated small bowel, free fluid, or free air. No mesenteric or retroperitoneal lymphadenopathy. There is some annular soft tissue thickening upper cecum, axial image 59 and coronal image 39 that sh ould be correlated with routine screening colonoscopy. There is moderate edematous wall thickening extending from the splenic flexure of the colon to the pr oximal sigmoid colon with moderate tracking edema. Mild proximal and mid sigmoid diverticular change. Bladder nondistended. Uterus surgically absent. Neither ovary clearly delineated. No abnormal fluid c ollection in the pelvis or pelvic lymphadenopathy. Bones: Mild to moderate degenerative change of the hips. Mild bilateral degenerative change at the SI joints. Moderate to advanced degenerative disc disease lower thoracic and upper to mid lumbar spine with Baastrup's disease and severe hypertrophic facet arthropathy mid to lower lumbar spine. Degenera jasvir levoconvex scoliosis. IMPRESSION: 1. LONG SEGMENT MODERATE TO SEVERE NONSPECIFIC COLITIS FROM THE SPLENIC FLEXURE OF THE COLON TO THE P ROXIMAL SIGMOID COLON. CORRELATE FOR INFECTIOUS, INFLAMMATORY, AND ISCHEMIC ETIOLOGIES. 2. NO FREE AIR. 3. ANNULAR SOFT TISSUE THICKENING OF THE COLON AT THE LEVEL OF THE UPPER CECUM MAY BE DUE TO FOCAL PE RISTALSIS. CORRELATE WITH DIRECT VISUALIZATION IF ROUTINE SCREENING COLONOSCOPY IS NOT BEING PERFORME D TO EXCLUDE NEOPLASM. 4. STATUS POST FABIAN FUNDOPLICATION. THERE IS A 1.6 CM NODULE IN THE GASTROHEPATIC LIGAMENT REGION A NTERIOR TO THE WRAP, STABLE FOR 6 MONTHS. THE ETIOLOGY IS UNCLEAR. CONSIDER AN ADDITIONAL 6 MONTH FOL LOW-UP TO REASSESS. 5. NODULAR THICKENING OF THE LEFT ADRENAL GLAND MINIMALLY INCREASED. THIS SHOULD ALSO BE REASSESSED A T FOLLOW-UP.
[2022-06-28 14:04] VITALS: BP 102/60; PULSE 72; RESP 16
[2022-06-28] MEDS ORDERED: ONDANSETRON 4 MG ODT STARTER PACK 2 TAB BTL PO STA (14:16)
== END 2022-06-28 14:50 | disposition home or self-care (01) ==
LOC: EC 11:15
DX: K52.9 Noninfective gastroenteritis and colitis, unspecified (principal); D72.829 Elevated white blood cell count, unspecified; E11.9 Type 2 diabetes mellitus without complications; I10 Essential (primary) hypertension; Z88.2 Allergy status to sulfonamides; Z88.8 Allergy status to other drugs, medicaments and biological substances; Z88.5 Allergy status to narcotic agent; Z88.1 Allergy status to other antibiotic agents; Z88.6 Allergy status to analgesic agent; Z79.899 Other long term (current) drug therapy; Z79.82 Long term (current) use of aspirin
CPT/HCPCS: 36415; 80053; 83605; 83735; 85025; 85610; 85730; 74177; 99284; 96365; 96375; 96361; J2405; J3010; J3475; S0119; Q9967

== ENCOUNTER → 2022-10-03 | Outpatient (CLI) | payer BC ==
--- NOTE | 2022-10-04 10:21 | MR ---
EXAMINATION TYPE: MR brain wo/w con DATE OF EXAM: 10/03/2022 COMPARISON: Prior MRI brain January 19, 2021 HISTORY: History of tumor removal of right side, numbness radiating up left side of neck and pain, lo ss of vision in left eye TECHNIQUE: Multiplanar, multisequence images of the brain and brainstem is performed without and with IV contras t, utilizing 5.5 mL intravenous Gadavist . FINDINGS: Diffusion weighted images demonstrate no evidence of a recent infarct or other diffusion ab normality. Mild ventricular and sulcal prominence is redemonstrated. A few scattered small foci of T2 hyperintensity are redemonstrated throughout the white matter bilaterally. Right-sided craniotomy de fect with focal right volume loss or surgical resection cavity in the right frontoparietal region is redemonstrated. Stable adjacent T2 hyperintensity or focal encephalomalacia. Midline structures redemonstrate normal morphology. The craniocervical junction remains within darvin l limits. Post contrast images demonstrate no new suspicious enhancement or enhancing masses.. The d ural venous sinuses appear patent. The visualized sinuses are clear and the globes are intact. IMPRESSION: Right frontoparietal surgical change with focal resection cavity and adjacent encephaloma lacia. Mild diffuse cerebral atrophy and chronic small vessel ischemic change redemonstrated. No susp icious new enhancement or enhancing masses. No significant change from prior study to suggest neoplas tic recurrence.
== END | disposition home or self-care (01) ==
LOC: RADMRIMAIN 09:01
PROVIDERS: ATTEND Family Medicine
DX: G93.89 Other specified disorders of brain (principal); I67.82 Cerebral ischemia; G31.9 Degenerative disease of nervous system, unspecified; Z86.011 Personal history of benign neoplasm of the brain
CPT/HCPCS: 70553; A9585

== ENCOUNTER → 2022-10-16 | Outpatient (CLI) | payer BC ==
--- NOTE | 2022-10-16 21:06 | EEG ---
ELECTROENCEPHALOGRAM REPORT PREAMBLE: This is a 77-year old female, who has been experiencing numbness in her face, on and off for the past year. It always involves the left side. However, 2 weeks ago, it progressed to the right side as well. She will also have blurred vision during these events. They only last for a few minutes. 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 CURRENT MEDICATIONS: 1. Lisinopril. 2. Metformin. 3. Vitamin D. 4. Metoprolol. 5. Pantoprazole. 6. Montelukast. 7. Premarin. EEG FINDINGS: This is a 21-channel digital EEG recorded with video component, utilizing 10/20 international system with referential and bipolar montages. Background consists of well developed, well regulated moderate voltage activity in 9-10 hertz alpha. Background is posterior dominant and reactive to eye opening and closing. There is frequent dysrhythmic theta slowing seen in the right temporal region. Frequent right mid temporal sharp waves were seen, which does appear to have epileptiform morphology. No electrographic seizure was recorded. Photic driving response was seen with some flash frequencies. Drowsiness was seen with appearance of bilaterally symmetric theta frequency rhythm, but deeper stages of sleep were not seen. The EKG channel showed no obvious arrhythmia. IMPRESSION: This is an abnormal EEG due to presence of intermittent focal slowing and focal epileptiform activity over the right temporal region. This is suggestive of focal cortical neuronal dysfunction with underlying cortical irritability and tendency for seizure. In appropriate clinical setting, this EEG can be sales and service representative of interictal expression of localization- related epilepsy. Clinical correlation is however strongly recommended. MMLESLEY / JOSEPH: [id number] / LYDIA
== END | disposition home or self-care (01) ==
LOC: NEUROMAIN 07:37
PROVIDERS: ATTEND Family Medicine
DX: G93.89 Other specified disorders of brain (principal); G81.90 Hemiplegia, unspecified affecting unspecified side; Z86.011 Personal history of benign neoplasm of the brain
CPT/HCPCS: 95816